=== PATIENT | male | born 2000 | race Hispanic/Latino ===

== ENCOUNTER 2019-07-01 01:34 | Emergency (ER) | payer BC ==
[2019-07-01] MEDS ORDERED: NA CHLORIDE 0.9% 500 ML ONE (02:15)
[2019-07-01 02:40] LABS: Barbiturates NEGATIVE (NEGATIVE); Benzodiazepines NEGATIVE (NEGATIVE); Cocaine NEGATIVE (NEGATIVE); METHAMPHETAM NEGATIVE (NEGATIVE); Methadone NEGATIVE (NEGATIVE); Opiates NEGATIVE (NEGATIVE); Phencyclidine NEGATIVE (NEGATIVE); THC Cannibis NEGATIVE (NEGATIVE)
[2019-07-01 02:41] LABS: Urine Blood NEGATIVE (NEG); Urine Glucose NEGATIVE (NEG); Urine Protein NEGATIVE (NEG); Urine Specific Gravity >1.030 (1.005-1.030)
[2019-07-01 02:45] LABS: Absolute Lymphocytes (CBC) 3.8 K/uL (0.7-4.9); Hematocrit 40.2 % (39.6-49.0); Lymphocytes % 56.2 % (15.3-44.8); MPV 8.7 fL (7.6-11.3); RBC Red Blood Cell Count 4.36 M/uL (4.33-5.43)
[2019-07-01 03:21] LABS: ALT/SGPT 30 U/L (12-78); AST/SGOT 19 U/L (15-37); Albumin 4.2 g/dL (3.4-5.0); Alkaline Phosphatase 70 U/L (45-117); BUN Blood Urea Nitrogen 17 mg/dL (7-18); Bicarbonate 30 mmol/L (21-32); Bilirubin Direct < 0.1 mg/dL (0-0.2); Bilirubin Total 0.2 mg/dL (0.2-1.0); Glucose Level 99 mg/dL (74-106); Magnesium 2.1 mg/dL (1.8-2.4); NT PRO-BNP 6 pg/mL (<125); Potassium 3.7 mmol/L (3.5-5.1); Protein, Total 7.3 g/dL (6.4-8.2); Sodium Level 140 mmol/L (136-145); Troponin (Emerg Dept Use Only) < 0.02 ng/mL (0.0-0.045)
--- NOTE | 2019-07-01 04:02 | ER ---
Nurse's Notes [facility] Name: Cheikh Malave Age: 19 yrs Sex: Male : 2000 Arrival Date: 07/01/2019 Time: 01:35 Bed 13 Private MD: Diagnosis: Other chest pain Presentation: 07/01 02:00 Presenting complaint: Patient states: Reports left sided chest pain that started around ea midnight, denies SOB, or radiation. Denies cardiac history. Transition of care: patient was not received from another setting of care. Onset of symptoms was July 01, 2019. Risk Assessment: Do you want to hurt yourself or someone else? Patient reports no desire to harm self or others. Initial Sepsis Screen: Does the patient meet any 2 criteria? No. Patient's initial sepsis screen is negative. Does the patient have a suspected source of infection? No. Patient's initial sepsis screen is negative. 02:00 Method Of Arrival: Ambulatory ea 02:00 Acuity: TREASURE 3 ea Historical: - Allergies: 05:12 PENICILLINS; ea - Home Meds: 05:12 None [Active]; ea - PMHx: 05:12 None; ea - PSHx: 05:12 None; ea - Immunization history:: Adult Immunizations up to date. - Social history:: Smoking status: Patient/guardian denies using tobacco. - Family history:: not pertinent. - Ebola Screening: : No symptoms or risks identified at this time. Screenin:00 Abuse screen: Denies threats or abuse. Nutritional screening: No deficits noted. ea Tuberculosis screening: No symptoms or risk factors identified. Fall Risk None identified. Assessment: 02:00 General: Appears in no apparent distress. Behavior is calm, cooperative, appropriate ea for age. Pain: Complains of pain in chest Pain does not radiate. Pain began 1 hour ago. Neuro: No deficits noted. Cardiovascular: Patient's skin is warm and dry. Respiratory: Airway is patent Respiratory effort is even, unlabored, Respiratory pattern is regular, symmetrical. Derm: Skin is pink, warm \T\ dry. 03:00 Reassessment: Patient and/or family updated on plan of care and expected duration. Pain ea level reassessed. Patient is alert, oriented x 3, equal unlabored respirations, skin warm/dry/pink. 04:30 Reassessment: Patient and/or family updated on plan of care and expected duration. Pain ea level reassessed. Patient is alert, oriented x 3, equal unlabored respirations, skin warm/dry/pink. 05:00 Reassessment: Patient and/or family updated on plan of care and expected duration. Pain ea level reassessed. Patient is alert, oriented x 3, equal unlabored respirations, skin warm/dry/pink. Discharge instruction given to patient, verbalized the understanding of instruction. Pt left ED ambulatory accompanied by family, tolerating well. Vital Signs: 02:30 BP 109 / 72; Pulse 58; Resp 18; Pulse Ox 100% on R/A; ea 03:30 BP 115 / 52; Pulse 57; Resp 18; Pulse Ox 100% on R/A; ea 04:50 BP 114 / 61; Pulse 59; Resp 18; Temp 98; Pulse Ox 99% ; ea 05:00 BP 114 / 61; Pulse 60; Resp 18; Temp 98(O); Pulse Ox 100% ; ea ED Course: 01:35 Patient arrived in ED. ds1 02:00 Patient maintains SpO2 saturation greater than 95% on room air. ea 02:00 Arm band placed on right wrist. Patient placed in an exam room, on a stretcher, on ea pulse oximetry. 02:07 Joel Morales MD is Attending Physician. [facility] 02:11 Libby Shepard, RN is Primary Nurse. ea 02:36 UDS Sent. 5 02:36 Basic Metabolic Panel Sent. 5 02:37 CBC with Diff Sent. 5 02:37 LFT's Sent. 5 02:37 Magnesium Sent. 5 02:37 NT PRO-BNP Sent. 5 02:37 Troponin (emerg Dept Use Only) Sent. 5 02:37 Patient has correct armband on for positive identification. Bed in low position. Call [facility] light in reach. Side rails up X 1. Adult w/ patient. Warm blanket given. telemetry monitor on. Pulse ox on. NIBP on. 02:38 Initial lab(s) drawn, by me, sent to lab. EKG done, by ED staff, reviewed by Joel Morales MD. Inserted saline lock: 20 gauge in right antecubital area, using aseptic technique. Blood collected. 02:54 Chest Pa And Lat (2 Views) XRAY In Process Unspecified. EDME 03:52 Brian Meyer MD is Referral Physician. [facility] 04:11 Triage completed. ea 05:00 No provider procedures requiring assistance completed. IV discontinued, intact, ea bleeding controlled, No redness/swelling at site. Pressure dressing applied. Administered Medications: 03:08 Drug: NS 0.9% 500 ml Route: IV; Rate: bolus; Site: right antecubital; ea 05:13 Follow up: Response: No adverse reaction; IV Status: Completed infusion; IV Intake: ea 500ml Intake: 05:13 IV: 500ml; Total: 500ml. ea Outcome: 03:52 Discharge ordered by . [facility] 05:00 Discharged to home ambulatory, with significant other. ea 05:00 Condition: stable 05:00 Discharge instructions given to patient, Instructed on discharge instructions, follow up and referral plans. medication usage, Demonstrated understanding of instructions, follow-up care, medications, Prescriptions given X 3. 05:13 Patient left the ED. ea Signatures: Dispatcher [employer] EDME Joel Morales MD MD cha Sanford, Demi ds1 Miladis De 5 Libby Shepard, RN RN lino
--- NOTE | 2019-07-01 04:04 | EDPHYS ---
Physician Documentation [facility] Name: Cheikh Malave Age: 19 yrs Sex: Male : 2000 Arrival Date: 07/01/2019 Time: 01:35 Bed 13 Private MD: ED Physician Joel Morales HPI: 07/01 03:14 This 19 yrs old Male presents to ER via Unassigned with complaints of Chest azeb Pain. 03:14 The patient or guardian reports chest pain that is located primarily in the anterior azeb chest wall, bilaterally. The pain radiates to anterior aspect of left upper chest and left breast. 03:14 Associated signs and symptoms: The patient has no apparent associated signs or azeb symptoms. The chest pain is described as sharp. Modifying factors: The symptoms are alleviated by nothing. the symptoms are aggravated by nothing. Severity of pain: At its worst the pain was mild in the emergency department the pain is unchanged. The patient has not experienced similar symptoms in the past. Historical: - Allergies: 05:12 PENICILLINS; ea - Home Meds: 05:12 None [Active]; ea - PMHx: 05:12 None; ea - PSHx: 05:12 None; ea - Immunization history:: Adult Immunizations up to date. - Social history:: Smoking status: Patient/guardian denies using tobacco. - Family history:: not pertinent. - Ebola Screening: : No symptoms or risks identified at this time. ROS: 03:14 Constitutional: Negative for fever, chills, and weight loss, Eyes: Negative for injury, azeb pain, redness, and discharge, ENT: Negative for injury, pain, and discharge, Neck: Negative for injury, pain, and swelling, Respiratory: Negative for shortness of breath, cough, wheezing, and pleuritic chest pain, Abdomen/GI: Negative for abdominal pain, nausea, vomiting, diarrhea, and constipation, Back: Negative for injury and pain, : Negative for injury, bleeding, discharge, and swelling, MS/Extremity: Negative for injury and deformity, Skin: Negative for injury, rash, and discoloration, Neuro: Negative for headache, weakness, numbness, tingling, and seizure. 03:14 Cardiovascular: Positive for chest pain, of the chest. Exam: 03:14 Constitutional: This is a well developed, well nourished patient who is awake, alert, azeb and in no acute distress. Head/Face: Normocephalic, atraumatic. Eyes: Pupils equal round and reactive to light, extra-ocular motions intact. Lids and lashes normal. Conjunctiva and sclera are non-icteric and not injected. Cornea within normal limits. Periorbital areas with no swelling, redness, or edema. ENT: Nares patent. No nasal discharge, no septal abnormalities noted. Tympanic membranes are normal and external auditory canals are clear. Oropharynx with no redness, swelling, or masses, exudates, or evidence of obstruction, uvula midline. Mucous membranes moist. Neck: Trachea midline, no thyromegaly or masses palpated, and no cervical lymphadenopathy. Supple, full range of motion without nuchal rigidity, or vertebral point tenderness. No Meningismus. Chest/axilla: Normal chest wall appearance and motion. Nontender with no deformity. No lesions are appreciated. Cardiovascular: Regular rate and rhythm with a normal S1 and S2. No gallops, murmurs, or rubs. Normal PMI, no JVD. No pulse deficits. Respiratory: Lungs have equal breath sounds bilaterally, clear to auscultation and percussion. No rales, rhonchi or wheezes noted. No increased work of breathing, no retractions or nasal flaring. Abdomen/GI: Soft, non-tender, with normal bowel sounds. No distension or tympany. No guarding or rebound. No evidence of tenderness throughout. Back: No spinal tenderness. No costovertebral tenderness. Full range of motion. Male : Normal genitalia with no discharge or lesions. Skin: Warm, dry with normal turgor. Normal color with no rashes, no lesions, and no evidence of cellulitis. MS/ Extremity: Pulses equal, no cyanosis. Neurovascular intact. Full, normal range of motion. Neuro: Awake and alert, GCS 15, oriented to person, place, time, and situation. Cranial nerves II-XII grossly intact. Motor strength 5/5 in all extremities. Sensory grossly intact. Cerebellar exam normal. Normal gait. Psych: Awake, alert, with orientation to person, place and time. Behavior, mood, and affect are within normal limits. 03:14 Cardiovascular: Rate: normal, Rhythm: regular, Pulses: no pulse deficits are appreciated, Heart sounds: normal, normal S1and S2, no S3 or S4, no murmur, no rub, no gallop, Edema: is not appreciated, JVD: is not appreciated. 03:14 Musculoskeletal/extremity: DVT Exam: No signs of deep vein thrombosis. no pain, no swelling, no tenderness, negative Homans' sign noted on exam, no appreciated bluish discoloration, no erythema, no increased warmth. Vital Signs: 02:30 BP 109 / 72; Pulse 58; Resp 18; Pulse Ox 100% on R/A; ea 03:30 BP 115 / 52; Pulse 57; Resp 18; Pulse Ox 100% on R/A; ea 04:50 BP 114 / 61; Pulse 59; Resp 18; Temp 98; Pulse Ox 99% ; ea 05:00 BP 114 / 61; Pulse 60; Resp 18; Temp 98(O); Pulse Ox 100% ; ea MDM: 02:07 Patient medically screened. [facility] 03:16 Data reviewed: vital signs, nurses notes, lab test result(s), EKG, radiologic studies, azeb plain films. 07/01 02:09 Order name: Basic Metabolic Panel; Complete Time: 03:52 [facility] 07/01 02:09 Order name: CBC with Diff; Complete Time: 03:14 [facility] 07/01 02:09 Order name: LFT's; Complete Time: 03:52 [facility] 07/01 02:09 Order name: Magnesium; Complete Time: 03:52 [facility] 07/01 02:09 Order name: NT PRO-BNP; Complete Time: 03:52 [facility] 07/01 02:09 Order name: Troponin (emerg Dept Use Only); Complete Time: 03:52 [facility] 07/01 02:09 Order name: Chest Pa And Lat (2 Views) XRAY [facility] 07/01 02:09 Order name: EKG; Complete Time: 02:10 [facility] 07/01 02:09 Order name: Cardiac monitoring; Complete Time: 02:37 [facility] 07/01 02:09 Order name: EKG - Nurse/Tech; Complete Time: 02:37 [facility] 07/01 02:09 Order name: IV Saline Lock; Complete Time: 02:37 [facility] 07/01 02:09 Order name: UDS; Complete Time: 03:14 [facility] 07/01 02:36 Order name: Urine Dipstick--Ancillary (enter results); Complete Time: 03:[address] [facility] 07/01 02:09 Order name: Labs collected and sent; Complete Time: 02:37 [facility] 07/01 02:09 Order name: O2 Per Protocol; Complete Time: 03:25 [facility] 07/01 02:09 Order name: O2 Sat Monitoring; Complete Time: :25 [facility] Administered Medications: 03:08 Drug: NS 0.9% 500 ml Route: IV; Rate: bolus; Site: right antecubital; ea 05:13 Follow up: Response: No adverse reaction; IV Status: Completed infusion; IV Intake: ea 500ml Disposition: 07/01/19 03:52 Discharged to Home. Impression: Other chest pain. - Condition is Stable. - Discharge Instructions: Nonspecific Chest Pain. - Prescriptions for Pepcid 20 mg Oral Tablet - take 1 tablet by ORAL route every 12 hours for 10 days; 20 tablet. Motrin IB 200 mg Oral Tablet - take 2 tablet by ORAL route every 6 hours As needed as needed with food; 30 tablet. - Medication Reconciliation Form, Thank You Letter, Antibiotic Education, Prescription Opioid Use form. - Follow up: Private Physician; When: 2 - 3 days; Reason: Recheck today's complaints, Continuance of care, Re-evaluation by your physician. Follow up: Brian Meyer MD; When: 2 - 3 days; Reason: Recheck today's complaints, Re-evaluation by your physician. - Problem is new. - Symptoms have improved. Signatures: Dispatcher [employer] EDMS Joel Morales MD MD cha Antunez, Elena RN RN lino Corrections: (The following items were deleted from the chart) 05:13 03:52 07/01/2019 03:52 Discharged to Home. Impression: Other chest pain. Condition is ea Stable. Discharge Instructions: Nonspecific Chest Pain. Prescriptions for Pepcid 20 mg Oral Tablet - take 1 tablet by ORAL route every 12 hours for 10 days; 20 tablet, Motrin IB 200 mg Oral Tablet - take 2 tablet by ORAL route every 6 hours As needed as needed with food; 30 tablet. and Forms are Medication Reconciliation Form, Thank You Letter, Antibiotic Education, Prescription Opioid Use. Follow up: Private Physician; When: 2 - 3 days; Reason: Recheck today's complaints, Continuance of care, Re-evaluation by your physician. Follow up: Brian Meyer; When: 2 - 3 days; Reason: Recheck today's complaints, Re-evaluation by your physician. Problem is new. Symptoms have improved. azeb
[2019-07-01 05:22] VITALS: BP 114/61; TEMP 98; O2SAT 99
--- NOTE | 2019-07-01 08:09 | EKG ---
Test Date: 2019-07-01 Test Time: 02:01:57 Recording Artist: DOV MEASUREMENT RESULTS: Intervals: Rate: 57 DC: 162 QRSD: 92 QT: 404 QTc: 393 [place]: P: -8 DC: 162 QRS: 69 T: 52 INTERPRETIVE STATEMENTS: Sinus bradycardia Early repolarization Otherwise normal ECG No previous ECG available for comparison Electronically Signed On 07-01-19 08:08:10 [employer] by Brian Meyer
--- NOTE | 2019-07-01 08:19 | RAD REPORT ---
EXAM DESCRIPTION: RAD - Chest Pa And Lat (2 Views) - 07/01/2019 2:54 am CLINICAL HISTORY: CHEST PAIN Chest pain. COMPARISON: No comparisons FINDINGS: The lungs are clear. The heart is normal in size. No displaced fractures. IMPRESSION: No acute or concerning finding suspected.
== END 2019-07-01 05:13 | disposition home or self-care (01) ==
LOC: ER 01:34
DX: R07.89 Other chest pain (principal); Z88.0 Allergy status to penicillin
CPT/HCPCS: 96361; 93005; 85025; 80048; 36415; 83735; 80076; 80307 ×8; 81003; 84484; 83880; 71046; 96360; 99285; J7040